=== PATIENT | male | born 1950 | race Caucasian/White ===

== ENCOUNTER 2016-08-26 19:06 | Emergency (ER) | payer OTHER, MEDICARE ==
--- NOTE | 2016-08-26 19:37 | CPEKG ---
Heart Rate: 66 RR Interval: 909 P-R Interval: 180 QRSD Interval: 94 QT Interval: 396 QTC Interval: 415 P Whitlash: 48 QRS Whitlash: -53 T Wave Whitlash: 51 EKG Severity - ABNORMAL ECG - EKG Impression: SINUS RHYTHM EKG Impression: VENTRICULAR PREMATURE COMPLEX EKG Impression: LEFT ANTERIOR FASCICULAR BLOCK EKG Impression: LEFT VENTRICULAR HYPERTROPHY Electronically Signed By: Soham Marie 26-Aug-2016 20:18:39
[2016-08-26] MEDS ORDERED: LORAZEPAM 1 MG PREPACK#4 BTL TAKEHOME ONE (20:37)
--- NOTE | 2016-08-26 20:37 | EDPHY ---
H & P Time Seen by Provider: 08/26/16 20:13 HPI/ROS: CHIEF COMPLAINT: Anxiety HISTORY OF PRESENT ILLNESS: Patient presents to the emergency department because of anxiety. His a history of panic attacks about 15 years ago. He is retired visiting from [place] for the last week. At 4:00 a.m. he awakened feeling very anxious. He felt "tension" in his body and he said that he "felt like an never going to go to sleep again." He was up and out of the bathroom 20 or 30 times. He went for a hike today at 9:00 a.m. without any chest pain or shortness of breath or any trouble with his exertional tolerance. 4:00 p.m. he had recurrence of symptoms feeling very anxious and unable to sit still. REVIEW OF SYSTEMS: Eye: no change in vision ENT: no sore throat Cardiac: no chest pain or syncope Pulmonary: no cough or SOB Abdomen: no vomiting, diarrhea, abdominal pain Musculoskeletal: No leg swelling Skin: no rash Neuro: no headache Constitutional: no fever : no urinary symptoms A comprehensive 10 point review of systems is otherwise negative aside from elements mentioned in the history of present illness. PAST MEDICAL HISTORY: Hypertension diagnosed recently. Hernia surgery is adolescent Social history: Denies drugs or alcohol or tobacco. Father of cancer and mother lived till 90. No history of premature coronary disease or venous thromboembolism. General Appearance: Alert and conversant, cooperative. Eyes: No scleral icterus. ENT, Mouth: Normal mucous membranes. Respiratory: Normal respiratory effort, breath sounds equal, lungs are clear to auscultation. Cardiovascular: Regular rate and rhythm. Gastrointestinal: Abdomen is soft and non tender. Neurological: Alert and oriented x3. Normally conversant. Face symmetric, normal movement and sensation in all extremities. Skin: Warm and dry, no rashes. Musculoskeletal: No peripheral edema and no joint swelling. No calf tenderness. Psychiatric: Mildly anxious otherwise normal Emergency Department course/MDM: Patient presents with symptoms of panic attack or anxiety. He has had such things but not for 15 years. He does have an abnormal EKG but I do not think that it is related to his symptoms. I think acute coronary syndrome or pulmonary embolism or other acute medical emergency is unlikely. Smoking Status: Never smoked Constitutional: Initial Vital Signs Temperature (C) 36.5 C 06/07/17 19:18 Heart Rate 73 08/26/16 19:18 Respiratory Rate 18 08/26/16 19:18 Blood Pressure 160/106 H 08/26/16 19:18 O2 Sat (%) 96 08/26/16 19:18 O2 Delivery Mode Room Air Allergies/Adverse Reactions: Penicillins Allergy (Verified 08/26/16 19:22) Home Medications: Medication Instructions Recorded Losartan Potassium 08/26/16 MDM/Departure - MDM Diagnostics: 12-lead EKG interpreted by me; official reading is in trace master. My interpretation is sinus rhythm with LVH and PVC, no ischemic changes. Medications Given: Discontinued Medications Lorazepam (Ativan 1 Mg Prepack#4) 1 btl TAKEHOME EDNOW ONE Stop: 08/26/16 20:38 Last Admin: 08/26/16 21:13 Dose: 1 btl - Depart Disposition: Home, Routine, Self-Care Clinical Impression: Panic anxiety syndrome Condition: Good Instructions: Lorazepam (By mouth), Panic Attack (ED) Additional Instructions: No driving for 12 hours after taking any ativan. Don't mix with alcohol. Referrals: DANIEL BARAJAS [Other] - As per Instructions
[2016-08-26 21:14] VITALS: BP 154/102; PULSE 78; RESP 17; TEMP 98.1; O2SAT 93
== END 2016-08-26 21:13 | disposition home or self-care (01) ==
DX: F41.0 Panic disorder [episodic paroxysmal anxiety] (principal); I10 Essential (primary) hypertension